=== PATIENT | female | born 1940 | race Caucasian/White ===

== ENCOUNTER 2016-11-11 14:29 | Inpatient (IN) | payer MEDICARE, OTHER ==
--- NOTE | ~2016-11-11 | CR127 ---
[facility] A Service of [facility] RADIOLOGY TEXT RESULTS PATIENT: KENAN RUSH LOCATION: [facility] : 38 UNIT #: [id number] AGE: [address]: RUFUS DOMINGUEZ MD SEX: F ORDER DR: [id number] [facility] [address] [place], [place] [address] [id number] I MR#: [id number] #: [id number] NAME: KENAN RUSH. : 1940 SEX: F STUDY DATE/TIME: 11/11/2016 15:00 UNIT: [facility] ROOM: [facility] STUDY DESCRIPTION: CR Foot Complete Min 3 View Rt Attending Physician: Gauri Hopper M.D. Ordering Physician: Abi Dupont M.D. Primary Care Physician: No Primary Care Physician MEDICAL IMAGING REPORT This report is preliminary unless electronic signature is present EXAM Right foot, 3 views. HISTORY Right foot redness and swelling for 4 days. No known injury. 3 views are submitted. FINDINGS Examination shows degenerative changes at the MTP joint with mild joint space narrowing. There are cystic degenerative changes in the hindfoot involving the articulation of the bases of the second through fifth metatarsals. Degenerative changes are seen at the PIP joints of digits 2 and 3, and at the DIP joints of digits 2 and 3. No fractures. No bone destruction is seen. 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 Dictated by... Roderick Cam M.D. THIS IS AN ELECTRONICALLY VERIFIED REPORT Roderick Cam M.D. at 11/13/2016 2:19 PM Leonor TD: 11/11/2016 22:07 JOB #: [id number] MEDICAL IMAGING REPORT Page 1 of 1 COPY
--- NOTE | ~2016-11-11 | HP ---
Unit #: [id number] #: [id number] Patient: KENAN RUSH [id number] [facility] [address] [place], [place] [address] [id number] MR#: [id number] NAME: KENAN RUSH. ROOM: [address]96 Age: 76 Sex: F Admission Date: 11/11/2016 : 1940 Attending Physician: Gauri Hopper M.D. HISTORY AND PHYSICAL CHIEF COMPLAINT Infection in foot. HISTORY OF PRESENT ILLNESS The patient is a 76-year-old female with a past medical history of neuropathy, hypertension, nephrolithiasis, degenerative disc disease, depression, and obstructive sleep apnea, who presented to the emergency department for evaluation of the above. The patient states that she has had a callus on her right foot for months and possibly a year. She states that she has tried to peel it off. She had a pedicure on November 08, 2016. She states that the following day she did not notice any abnormality. She had put on stockings for christianity. On the evening prior to admission, she noticed a wound in the area of the callus. She states that it was "like a blister had formed." It was also red. In the emergency department, a right foot x-ray was done and showed arthritis changes. White blood cell count is 16.7. She was given vancomycin in the emergency department. She is being admitted to [facility] for evaluation and further treatment. PAST MEDICAL HISTORY 1. Hypertension. 2. Neuropathy. 3. Nephrolithiasis. 4. Degenerative disc disease. 5. Depression. 6. Obstructive sleep apnea. 7. Hyperlipidemia. PAST SURGICAL HISTORY 1. Appendectomy. 2. Back surgery. 3. Right knee surgery. 4. What sounds like lipoma. 5. Spinal cord stimulator placement and removal. SOCIAL HISTORY The patient's son lives with her. There is no tobacco or alcohol use. She has a cane at home. Her code status is a Full Code. FAMILY HISTORY Notable for her mother having heart problems. Unit #: [id number] #: [id number] Patient: KENAN RUSH ALLERGIES No known allergies. HOME MEDICATIONS 1. VESIcare 5 mg daily. 2. Nexium 40 mg daily. 3. Lyrica 150 t.i.d. 4. Hydrocodone and acetaminophen 5/325 t.i.d. 5. Diovan HCT 320/25 daily. 6. Atenolol 25 mg in the morning and 12.5 mg at bedtime. 7. Ropinirole 0.25 mg daily. 8. Valacyclovir 500 mg twice daily p.r.n. 9. Latanoprost drops daily. 10. Triamcinolone cream daily. 11. Voltaren daily p.r.n. 12. Multivitamin daily. 13. Calcium, magnesium, zinc daily. 14. Cinnamon 2 tablets daily. 15. Biotin 10,000 mcg daily. 16. Vitamin B12 at 1000 mg daily. 17. Vitamin A 8000 units daily. 18. Vitamin C 1000 mg daily. 19. Vitamin E 400 units daily. 20. Vitamin D 1000 mg daily. 21. Metamucil daily. 22. Tylenol 650 mg daily p.r.n. 23. Myoflex cream daily p.r.n. 24. Simethicone daily p.r.n. 25. Fish oil 1000 mg daily. 26. Diclofenac 75 mg twice daily. 27. Simvastatin 20 mg daily. 28. Amlodipine 5 mg daily. 29. Brintellix 5 mg daily. REVIEW OF SYSTEMS A complete review of systems is negative except as indicated in the History of Present Illness. The patient denies ever having a similar wound. She denies any history of diabetes. PHYSICAL EXAMINATION VITAL SIGNS: Temperature is 98.2, pulse 60, respirations 16, blood pressure 145/63, and oxygen saturation 97% on room air. GENERAL: Patient is a female who is awake and alert. HEENT: Head is atraumatic. Mucous membranes are moist. NECK: Supple. Trachea is midline. CARDIOVASCULAR: Regular rate and rhythm. LUNGS: Clear to auscultation bilaterally with no increased work of breathing. ABDOMEN: Soft and nontender with bowel sounds present in all four quadrants. EXTREMITIES: The right foot on the medial aspect demonstrates a blister with surrounding erythema and warmth, as well as edema involving the foot and distal lower extremity. She does have a 2+ dorsalis pedis pulse. Sensation is absent which is not a new problem. NEUROLOGIC: Patient is awake and alert. She follows commands. PSYCHIATRIC: Mood and affect are normal. Patient is cooperative. SKIN: Skin of examined areas demonstrates the previously described Unit #: [id number] #: [id number] Patient: KENAN RUSH abnormalities. DIAGNOSTIC STUDIES LABORATORY: Complete blood count notable for white blood cell count of 16.7 and hemoglobin and hematocrit 11.2 and 34.5, respectively. Comprehensive metabolic panel notable for sodium of 129 and chloride is 92. ASSESSMENT The patient is a 76-year-old female with: 1. Right foot wound/cellulitis. The patient received vancomycin in the emergency department. 2. Neuropathy. 3. Leukocytosis with no other signs of sepsis. 4. Hyponatremia. 5. Normocytic anemia. 6. Hypertension. 7. Hyperlipidemia. 8. Nephrolithiasis. 9. Degenerative disc disease. 10. Depression. 11. Obstructive sleep apnea. PLAN 1. Admit to med/surg. 2. Healthy heart diet. 3. N.p.o. after midnight for possible surgical intervention. 4. Consult on-call Podiatry regarding foot wound. 5. Blood cultures x2. 6. Vancomycin IV and Zosyn IV for foot wound/cellulitis pending further workup. 7. TSH, B12, and folate. 8. Check CPK. 9. Repeat labs in the morning. 10. Additional workup and consultants based on above. 11. Regarding code status, the patient is a Full Code. 1. Dictated by Max Trevizo/chris TD: 11/11/2016 17:56 JOB #: [id number] HISTORY AND PHYSICAL Page 1 of 1 X Laurie Wayne MD X HISTORY AND PHYSICAL
--- NOTE | ~2016-11-11 | DS ---
Unit #: [id number] #: [id number] Patient: KENAN RUSH [id number] [address] [address] [id number] I MR#: [id number] NAME: KENAN RUSH. ROOM: 227 Age: 76 Sex: F Admission Date: 11/11/2016 : 1940 Discharge Date: 11/13/2016 Attending Physician: Antionette Joyce M.D. Primary Care Physician: No Primary Care Physician DISCHARGE SUMMARY DISCHARGE DIAGNOSES 1. Cellulitis of the right foot. 2. Right foot infection with methicillin-sensitive Staphylococcus aureus. 3. Hypertension. 4. Neuropathy. 5. Degenerative disk disease. HOSPITAL COURSE The patient is a 76-year-old male admitted to the hospital on the 11 of November with a wound on the right foot. See the history and physical for detailed history. The patient was admitted to observation, started on IV antibiotics with vancomycin and Zosyn. The patient was seen by podiatry and underwent unroofing of the blisters at the bedside with cloudy fluid emitted from the wound. The patient's cultures were sent. The cultures came back positive for MSSA. The patient showed improvement, and antibiotics were changed to oral clindamycin. Patient is cleared by podiatry to be discharged home on Betadine wet-to-dry dressing of the right foot daily. The patient is discharged home in stable condition. PHYSICAL EXAMINATION GENERAL: The patient is lying on the bed, not in acute distress. VITALS: Temperature is 97.8, pulse 61, respirations 18, blood pressure 153/63. HEENT: Head atraumatic, normocephalic. Pupils equal, round and reactive to light and accommodation. Extraocular movements are intact. Moist mucous membranes. LUNGS: Clear to auscultation bilaterally. No rhonchi. No wheezing. HEART: Regular rate and rhythm. ABDOMEN: Soft. Positive bowel sounds. EXTREMITIES: Right foot cellulitis is improved, and wound status post dressing change by podiatry earlier this morning with minimal leakage. NEUROLOGIC: Alert, awake, oriented. No gross focal motor deficits. With baseline dementia. DIAGNOSTIC STUDIES LAB DATA: Glucose 111, BUN 17, creatinine 0.5, sodium 136, potassium 4.2, chloride 102, bicarb 27, calcium 8.4, total protein 5.1. WBC is 10.1 (down from 16.7), hemoglobin 10, platelets 261. Blood cultures remain negative. The wound culture is positive for MSSA. IMAGING: X-ray of the foot shows arthritis changes in the foot, particularly at the articulation of the cuneiforms and with the base of the second through fifth metatarsal, as well as at the interphalangeal Unit #: [id number] #: [id number] Patient: KENAN RUSH joints of the digits and first MTP joint. DISPOSITION Patient discharged home on oral clindamycin for 7 more days. FOLLOWUP The patient is to follow up with podiatry in 3-5 days. Continue with Betadine wet-to-dry dressing on the right foot. DISCHARGE CONDITION The patient is discharged home in stable condition. Dictated by.Max Coleman TD: 11/14/2016 09:29 JOB #: [id number] DISCHARGE SUMMARY Page 1 of 1 X X DISCHARGE SUMMARY
[~2016-11-11 14:29] MED LIST: ARTHRITIS PAIN650 M3 PO; BIOTIN10000 MC1 PO; CALCIUM MAGNESI1 TA1 PO; CENTRUM SILVER PO; CINNAMON PO; FISH OIL 1,001000 MG PO; FLEXERIL10 M1; FLEXERIL10 M1 PO; HYDROCODON-ACE1 EAC7 PO; LEXAPRO20 MG PO; LYRICA PO; MOBIC PO; NEXIUM PO; REQUIP0.25 MG PO; SIMVASTATIN40 MG PO; TENORMIN25 MG PO; VALSARTAN-HCTZ1 EAC3 PO; VESICARE5 MG PO; VITAMIN B-121000 MCG PO; VITAMIN C1000 M2 PO; VITAMIN D1000 UNI1 PO; VITAMIN E400 UNI4 PO; XALATAN OS
[2016-11-11 15:02] LABS: BASOPHIL# 0.1 X10e3 (0-0.3); BASOPHIL% 0.7 % (0-2.5); EOSINOPHIL# 0.1 X10e3 (0-0.7); EOSINOPHIL% 0.9 % (0.0-7.0); HEMATOCRIT 34.5 % (35.0-45.0); HEMOGLOBIN 11.2 gm/dL (12.0-16.0); LYMPHOCYTE# 2.1 X10e3 (1.0-3.5); LYMPHOCYTE% 12.8 % (17.0-45.0); MEAN CELL VOLUME 91.8 FL (83-96); MEAN CORPUSCULAR HEMOGLOBIN 29.9 PG (28-34); MEAN CORPUSCULAR HGB CONC 32.5 g/dL (30-36); MEAN PLATELET VOLUME 9.7 FL (6.5-11.5); MONOCYTE# 1.7 X10e3 (0-1.0); MONOCYTE% 10.1 % (3.0-12.0); NEUTROPHIL# 12.6 X10e3 (1.5-7.1); NEUTROPHIL% 75.5 % (40-75); PLATELET COUNT 271 X10e3 (140-420); RED BLOOD COUNT 3.76 X10e (3.90-5.30); RED CELL DISTRIBUTION WIDTH 13.5 % (11.0-15.5); WHITE BLOOD COUNT 16.7 X10e3 (4.0-10.5)
[2016-11-11 15:03] LABS: DIFF IND YES
[2016-11-11 15:28] LABS: ALBUMIN SERUM 3.5 g/dL (3.5-5.0); BILIRUBIN, DIRECT 0.1 mg/dL (0.0-0.2); BILIRUBIN,INDIRECT 0.7 mg/dL (0.0-0.9); BILIRUBIN,TOTAL 0.8 mg/dL (0.2-2.0); BUN/CREATININE RATIO 17.5; CALCIUM SERUM 9.1 mg/dL (8.4-10.2); CREATININE SERUM 0.8 mg/dL (0.6-1.4); GLOM FILT RATE Estimated 71.2 mL/min (>60); PLATELET ESTIMATE NORMAL (NORMAL); POTASSIUM 3.8 mmol/L (3.5-5.1); PROTEIN TOTAL SERUM 6.5 g/dL (6.0-8.3)
[2016-11-11] MEDS ORDERED: VESICARE PO (15:46)
[2016-11-11] MEDS ORDERED: LYRICA PO (15:47)
[2016-11-11] MEDS ORDERED: NEXIUM PO (15:47)
[2016-11-11] MEDS ORDERED: HYDROCODON-ACE1 EAC7 PO (15:48)
[2016-11-11] MEDS ORDERED: DIOVAN HCT 3201 EACH PO (15:49)
[2016-11-11] MEDS ORDERED: ATENOLOL25 MG PO ×2 (15:49)
[2016-11-11] MEDS ORDERED: ROPINIROLE HC0.25 MG PO (15:50)
[2016-11-11] MEDS ORDERED: VALACYCLOVIR500 MG PO (15:58)
[2016-11-11] MEDS ORDERED: LATANOPROST2.5 ML OU (15:59)
[2016-11-11] MEDS ORDERED: TRIAMCINOLONE AC1 GM EXT (16:01)
[2016-11-11] MEDS ORDERED: VOLTAREN100 GM EXT (16:03)
[2016-11-11] MEDS ORDERED: MULTI VITAMIN1 EACH PO (16:03)
[2016-11-11] MEDS ORDERED: CINNAMON3.7 ML PO (16:04)
[2016-11-11] MEDS ORDERED: [UNRECOGNIZED DRUG - OTHER] PO (16:04)
[2016-11-11] MEDS ORDERED: BIOTIN10000 MC1 PO (16:05)
[2016-11-11] MEDS ORDERED: VITAMIN A PO (16:06)
[2016-11-11] MEDS ORDERED: VITAMIN B12 PO (16:06)
[2016-11-11] MEDS ORDERED: VITAMIN C1000 M1 PO (16:07)
[2016-11-11] MEDS ORDERED: VITAMIN E400 UNI4 PO (16:07)
[2016-11-11] MEDS ORDERED: VITAMIN D1000 UNI1 PO (16:08)
[2016-11-11] MEDS ORDERED: METAMUCIL660 GM PO (16:08)
[2016-11-11] MEDS ORDERED: ARTHRITIS PAIN650 M2 PO (16:09)
[2016-11-11] MEDS ORDERED: MYOFLEX EXT (16:10)
[2016-11-11] MEDS ORDERED: GAS RELIEF125 M1 PO (16:10)
[2016-11-11] MEDS ORDERED: FISH OIL PO (16:11)
[2016-11-11] MEDS ORDERED: VOLTAREN75 MG PO (16:14)
[2016-11-11] MEDS ORDERED: AMLODIPINE BESYL5 MG PO (16:15)
[2016-11-11] MEDS ORDERED: SIMVASTATIN20 MG PO (16:15)
[2016-11-11] MEDS ORDERED: BRINTELLIX5 MG PO (16:15)
[2016-11-11 18:16] LABS: FOLATE (FOLIC ACID) >23.6 ng/mL (>5.8)
[2016-11-12 07:19] LABS: HEMOGLOBIN 10.5 gm/dL (12.0-16.0); MEAN CELL VOLUME 92.2 FL (83-96); MEAN CORPUSCULAR HEMOGLOBIN 30.3 PG (28-34); MEAN CORPUSCULAR HGB CONC 32.9 g/dL (30-36); MEAN PLATELET VOLUME 9.8 FL (6.5-11.5); RED BLOOD COUNT 3.47 X10e (3.90-5.30); RED CELL DISTRIBUTION WIDTH 13.7 % (11.0-15.5); WHITE BLOOD COUNT 15.5 X10e3 (4.0-10.5)
[2016-11-12 08:29] LABS: ALBUMIN SERUM 2.9 g/dL (3.5-5.0); BILIRUBIN,TOTAL 0.5 mg/dL (0.2-2.0); BUN/CREATININE RATIO 24.28; CALCIUM SERUM 8.7 mg/dL (8.4-10.2); CREATININE SERUM 0.7 mg/dL (0.6-1.4); GLOM FILT RATE Estimated 83.6 mL/min (>60); POTASSIUM 3.9 mmol/L (3.5-5.1); PROTEIN TOTAL SERUM 5.1 g/dL (6.0-8.3)
[2016-11-13 05:14] LABS: HEMATOCRIT 30.2 % (35.0-45.0); MEAN CELL VOLUME 91.1 FL (83-96); MEAN CORPUSCULAR HEMOGLOBIN 30.2 PG (28-34); MEAN CORPUSCULAR HGB CONC 33.2 g/dL (30-36); MEAN PLATELET VOLUME 9.5 FL (6.5-11.5); RED BLOOD COUNT 3.31 X10e (3.90-5.30); RED CELL DISTRIBUTION WIDTH 13.8 % (11.0-15.5); WHITE BLOOD COUNT 10.1 X10e3 (4.0-10.5)
[2016-11-13 05:40] LABS: CALCIUM SERUM 8.4 mg/dL (8.4-10.2); CREATININE SERUM 0.5 mg/dL (0.6-1.4); GLOM FILT RATE Estimated 93.4 mL/min (>60); POTASSIUM 4.2 mmol/L (3.5-5.1)
[2016-11-13] MEDS ORDERED: CLEOCIN150 M1 PO (10:55)
== END 2016-11-13 12:03 | disposition home or self-care (01) | DRG 603 ==
LOC: CED 14:29 → CEDOF 17:15 → C2A 20:00
PROVIDERS: Emergency Medicine; Family Medicine; Internal Medicine
PROC: 0H9MXZZ Drainage of Right Foot Skin, External Approach (ICD-10-PCS; principal; 2016-11-11)
DX: L03.115 Cellulitis of right lower limb (principal); G62.9 Polyneuropathy, unspecified; E87.1 Hypo-osmolality and hyponatremia; B95.61 Methicillin susceptible Staphylococcus aureus infection as the cause of diseases classified elsewhere; D64.9 Anemia, unspecified; I10 Essential (primary) hypertension; E78.5 Hyperlipidemia, unspecified; N20.0 Calculus of kidney; F32.9 Major depressive disorder, single episode, unspecified; G47.33 Obstructive sleep apnea (adult) (pediatric); S90.821A Blister (nonthermal), right foot, initial encounter; Z90.49 Acquired absence of other specified parts of digestive tract; E78.00 Pure hypercholesterolemia, unspecified
CPT/HCPCS: 36415; 73630; 80048; 80053; 80076; 82550; 82607; 82746; 84443; 85025; 85027; 87040; 87070; 87077; 87186; 87205; 96365; 99285; J2543; J3370

== ENCOUNTER 2017-04-04 13:25 | Emergency (ER) | payer MEDICARE, OTHER ==
[~2017-04-04] VITALS: Ht 157.5 cm; Wt 65.8 kg
[~2017-04-04 13:25] MED LIST changes: +AMLODIPINE BESYL5 MG PO; +ARTHRITIS PAIN650 M2 PO; +ATENOLOL25 MG PO; +BRINTELLIX5 MG PO; +CINNAMON3.7 ML PO; +CLEOCIN150 M1 PO; +DIOVAN HCT 3201 EACH PO; +FISH OIL PO; +GAS RELIEF125 M1 PO; +LATANOPROST2.5 ML OU; +METAMUCIL660 GM PO; +MULTI VITAMIN1 EACH PO; +MYOFLEX EXT; +ROPINIROLE HC0.25 MG PO; +SIMVASTATIN20 MG PO; +TRIAMCINOLONE AC1 GM EXT; +VALACYCLOVIR500 MG PO; +VESICARE PO; +VITAMIN A PO; +VITAMIN B12 PO; +VITAMIN C1000 M1 PO; +VOLTAREN100 GM EXT; +VOLTAREN75 MG PO; +[UNRECOGNIZED DRUG - OTHER] PO
== END 2017-04-04 15:05 | disposition home or self-care (01) ==
LOC: CED 13:25
DX: S90.821A Blister (nonthermal), right foot, initial encounter (principal); I10 Essential (primary) hypertension; Z79.899 Other long term (current) drug therapy; X58.XXXA Exposure to other specified factors, initial encounter
CPT/HCPCS: 99283